=== PATIENT | male | born 1970 | race Caucasian/White ===

== ENCOUNTER 2020-08-14 06:41 | Day surgery (SDC) | payer BC ==
[2020-08-08 14:03] LABS: BASOPHILS % (AUTO) 0.3 % (0.0-5.0); EOSINOPHILS % (AUTO) 0.8 % (0.0-8.0); HEMATOCRIT 42.9 % (42-54); LYMPHOCYTES % (AUTO) 34.5 % (21.0-51.0); MEAN CORPUSCULAR HGB CONC 34.5 g/dL (32.0-36.0); MEAN CORPUSCULAR VOLUME 86.8 fL (79-99); NEUTROPHILS % (AUTO) 56.2 % (40.0-77.0); PLATELET COUNT (AUTO) 188 K/uL (130-400); RED BLOOD CELL COUNT(AUTO) 4.94 MIL/uL (4.50-6.20); RED CELL DISTRIBUTION WIDTH 12.9 % (11.0-15.5); WHITE BLOOD COUNT (AUTO) 6.5 K/uL (4.8-10.8)
[2020-08-08 14:13] LABS: CREATININE 0.9 mg/dL (0.5-1.5); INR 0.99 (0.85-1.15); POTASSIUM 4.1 mmol/L (3.5-5.1); PROTHROMBIN TIME 10.7 SEC (9.6-11.6)
[2020-08-08 14:16] LABS: APPEARANCE,URINE Clear (CLEAR); BILIRUBIN,URINE Negative (NEGATIVE); COLOR,URINE Yellow (YELLOW); GLUCOSE, URINE (UA) Negative (NEGATIVE); KETONES,URINE Trace mg/dL (NEGATIVE); LEUKOCYTE ESTERASE ,URINE Negative (NEGATIVE); NITRATE,URINE Negative (NEGATIVE); OCCULT BLOOD,URINE Large (NEGATIVE); PROTEIN,URINE Negative (NEGATIVE)
[2020-08-08 14:19] LABS: BACTERIA,URINE Rare /HPF (None Seen); RBC,URINE 26-50 /HPF (0-1); SQUAMOUS EPITHELIAL CELL,UR Rare /HPF (0-2); WBC,URINE 0-1 /HPF (0-1)
[2020-08-10 14:39] VITALS: BP 155/82
[~2020-08-14] VITALS: Ht 188 cm; Wt 116.6 kg
[2020-08-14] VITALS (17 sets, daily range): BP systolic 104–140; BP diastolic 51–89
[~2020-08-14 06:41] MED LIST: CEFTRIAXONE SODIUM 1 GM IVP SCH
[2020-08-14] MEDS ORDERED: LACTATED RINGERS 1000ML 1,000 ML IV ONE (07:11)
[2020-08-14] MEDS ORDERED: LIDOCAINE PF 2% 5ML ABBOJECT ONE (08:23)
[2020-08-14] MEDS ORDERED: SUCCINYLCHOLINE 200MG/10ML SYR ONE (08:23)
[2020-08-14] MEDS ORDERED: MIDAZOLAM HCL 1 MG/ML 2ML VIAL ONE (08:23)
[2020-08-14] MEDS ORDERED: ONDANSETRON HCL 4 MG/2 ML VIAL ONE (08:24)
[2020-08-14] MEDS ORDERED: ROCURONIUM 10MG/1ML SYR 10 MG/ML ML ONE (08:24)
[2020-08-14] MEDS ORDERED: FENTANYL CITRATE PF 50 MCG/1 ML 2ML VIAL ONE ×2 (08:24→09:29)
[2020-08-14] MEDS ORDERED: PROPOFOL 10 MG/ML 20ML VIAL IV ONE (08:24)
--- NOTE | 2020-08-14 11:10 | NUR ---
POST RECEIVED PT FROM PACU / S/P LEFT ESWL. PT AWAKE AND ALERT IN BED,NO DISTRESS NOTED. PT DENIED ANY PAIN OR DISCOMFORTS. VS STABLE ON ARRIVAL. CALL LIGHT WITHIN REACH.
--- NOTE | 2020-08-14 11:35 | NUR ---
DC PT DC HOME VIA WC, NO DISTRESS NOTED. PT DENIED ANY PAIN OR DISCOMFORTS. STRAINER PROVIDED TO PT. DC INTRUCTIONS REINFORCED AT THIS TIME. RX GIVEN TO PT
== END 2020-08-14 11:35 | disposition home or self-care (01) ==
LOC: DAH 06:41
PROVIDERS: ATTEND Urology
DX: N20.0 Calculus of kidney (principal); Z98.890 Other specified postprocedural states; Z20.828 Contact with and (suspected) exposure to other viral communicable diseases; Z79.01 Long term (current) use of anticoagulants
CPT/HCPCS: 36415; 50590; 74018; 80048; 81001; 85025; 85610; 85730; 87088; 93005; A4215; A4221; A4222; A4223; A4600; A4663; A6260; C9803; J0330; J0696; J2001; J2250; J2405; J2704; J3010 ×2; J7030; J7120; U0003